=== PATIENT | female | born 1955 | race Caucasian/White ===

== ENCOUNTER 2023-04-22 09:30 | Inpatient (IN) ==
[2023-04-22] MEDS ORDERED: ONDANSETRON 4 MG/2 ML VIAL IV PRN (09:38)
[2023-04-22 10:52] LABS: Basophils # (Auto) 0.01 K/mcL (0.00-0.30); Basophils % (Auto) 0.1 % (0.0-2.0); Eosinophils # (Auto) 0.01 K/mcL (0.00-0.70); Eosinophils % (Auto) 0.1 % (0.0-7.0); Hematocrit 33.9 % (34.1-44.9); Hemoglobin 10.9 g/dL (11.2-15.7); Lymphocytes % (Auto) 9.4 % (15.5-49.0); Mean Cell Volume 92.6 fL (80.0-100.0); Mean Corpuscular HGB Conc 32.2 g/dL (31.0-36.0); Mean Platelet Volume 8.4 fL (8.8-12.5); Monocytes # (Auto) 0.34 K/mcL (0.10-0.90); Platelet Count 257 K/mcL (140-440); RBC 3.66 M/mcL (3.59-5.38); Red Cell Distribution Width 11.9 % (11.5-14.5); WBC 8.5 K/mcL (4.5-11.0)
[2023-04-22 11:26] LABS: ALT/SGPT 12 U/L (<40); AST/SGOT 19 U/L (<32); Albumin 3.1 gm/dL (3.2-5.2); Alkaline Phosphatase 130 U/L (39-117); Bilirubin,Direct < 0.2 mg/dL (0-0.3); Bilirubin,Total 0.3 mg/dL (0.1-1.0); Blood Urea Nitrogen 10 mg/dL (8-23); Calcium 9.1 mg/dL (8.6-10.4); Carbon Dioxide 26 mmol/L (22-30); Chloride 101 mmol/L (96-108); Globulin 3.2 gm/dL (2.2-3.7); Glomerular Filtration Rate 52; Glucose 117 mg/dL (70-105); Lactate Dehydrogenase 156 U/L (135-225); Phosphorous 1.9 mg/dL (2.5-4.5); Triglycerides 160 mg/dL (<150); Uric Acid 7.9 mg/dL (2.5-8.0)
[2023-04-22] MEDS: 0.9 % SODIUM CHLORIDE 1,000 ML IV SCH ×2 (11:48→17:24)
[2023-04-22] MEDS: 0.9 % SODIUM CHLORIDE 10 ML SYRINGE IV SCH ×2 (13:03→21:51)
[2023-04-22] MEDS: PIPERACILLIN SODIUM/TAZOBACTAM 3.375 GM in DEXTROSE 5% IN WATER 50 ML IV SCH ×3 (13:03→23:46)
[2023-04-22] MEDS ORDERED: IOPAMIDOL 100 ML BOTTLE IV ONE (14:44)
[2023-04-22] MEDS: POTASSIUM PHOSPHATE 40 MEQ in DEXTROSE 5% IN WATER 500 ML IV SCH ×2 (15:05→20:12)
[2023-04-22] MEDS: TEMAZEPAM 15 MG CAPSULE PO PRN (21:07)
[2023-04-22] MEDS: ARIPIPRAZOLE 5 MG TABLET PO SCH (21:07)
[2023-04-22] MEDS: SENNOSIDES 1 TABLET PO SCH (21:07)
[2023-04-22] MEDS: DOCUSATE SODIUM 100 MG CAPSULE PO SCH (21:08)
[2023-04-22] MEDS: PRAZOSIN 1 MG CAPSULE PO SCH (21:51)
[2023-04-23] MEDS: HYDROmorphone 0.5 MG/0.5 ML SYRINGE IV PRN ×3 (03:43→20:06)
[2023-04-23] MEDS: 0.9 % SODIUM CHLORIDE 10 ML SYRINGE IV SCH ×2 (05:34→14:13)
[2023-04-23] MEDS: PIPERACILLIN SODIUM/TAZOBACTAM 3.375 GM in DEXTROSE 5% IN WATER 50 ML IV SCH ×4 (06:03→23:19)
[2023-04-23] MEDS: 0.9 % SODIUM CHLORIDE 1,000 ML IV SCH ×3 (06:38→16:55)
[2023-04-23] MEDS: PANTOPRAZOLE 40 MG TABLET PO SCH (07:57)
[2023-04-23] MEDS: DOCUSATE SODIUM 100 MG CAPSULE PO SCH ×2 (09:25→20:08)
[2023-04-23] MEDS: TEMAZEPAM 15 MG CAPSULE PO PRN (20:08)
[2023-04-23] MEDS: ARIPIPRAZOLE 5 MG TABLET PO SCH (20:08)
[2023-04-23] MEDS: SENNOSIDES 1 TABLET PO SCH (20:08)
[2023-04-23] MEDS: PRAZOSIN 1 MG CAPSULE PO SCH (21:00)
[2023-04-24] MEDS: 0.9 % SODIUM CHLORIDE 10 ML SYRINGE IV SCH ×4 (01:37→22:05)
[2023-04-24] MEDS: 0.9 % SODIUM CHLORIDE 1,000 ML IV SCH ×3 (02:09→17:13)
[2023-04-24] MEDS: HYDROmorphone 0.5 MG/0.5 ML SYRINGE IV PRN ×3 (02:14→20:24)
[2023-04-24] MEDS ORDERED: SCOPOLAMINE 1 PATCH PATCH TOPICAL PRN (05:00)
[2023-04-24] MEDS ORDERED: IPRATROPIUM/ALBUTEROL 3 ML AMPUL.NEB NEB PRN ×2 (05:00→14:15)
[2023-04-24] MEDS: PIPERACILLIN SODIUM/TAZOBACTAM 3.375 GM in DEXTROSE 5% IN WATER 50 ML IV SCH ×3 (05:39→17:15)
[2023-04-24] MEDS: PANTOPRAZOLE 40 MG TABLET PO SCH (08:54)
[2023-04-24] MEDS: DOCUSATE SODIUM 100 MG CAPSULE PO SCH ×2 (11:04→20:33)
[2023-04-24] MEDS ORDERED: LIDOCAINE HCL/PF 100 MG/5 ML SYRINGE IV ONE (12:48)
[2023-04-24] MEDS ORDERED: KETAMINE 50 MG/ML Syringe IV ONE (12:48)
[2023-04-24] MEDS ORDERED: ONDANSETRON 4 MG/2 ML VIAL ONE (12:48)
[2023-04-24] MEDS ORDERED: fentaNYL 100 MCG/2 ML VIAL IV ONE (12:48)
[2023-04-24] MEDS ORDERED: ROCURONIUM 10 MG/ML ML IV ONE (12:48)
[2023-04-24] MEDS ORDERED: DEXAMETHASONE 10 MG/ML VIAL ONE (12:48)
[2023-04-24] MEDS ORDERED: SUGAMMADEX SODIUM 200 MG/2 ML VIAL IV ONE (12:48)
[2023-04-24] MEDS ORDERED: KETOROLAC 30 MG/ML VIAL ONE (12:48)
[2023-04-24] MEDS ORDERED: MAGNESIUM SULFATE 2 GM/50 ML BAG IV ONE (12:48)
[2023-04-24] MEDS ORDERED: PROPOFOL 200 MG/20 ML VIAL IV ONE (12:48)
[2023-04-24] MEDS ORDERED: TEMAZEPAM 15 MG CAPSULE PO PRN (13:59)
[2023-04-24] MEDS ORDERED: METHOCARBAMOL 1,000 MG/10 ML VIAL IV PRN (14:15)
[2023-04-24] MEDS ORDERED: ONDANSETRON 4 MG/2 ML VIAL IV PRN (14:15)
[2023-04-24] MEDS ORDERED: LACTATED RINGERS 1,000 ML IV SCH (14:15)
[2023-04-24] MEDS ORDERED: HYDROmorphone 0.5 MG/0.5 ML SYRINGE IV PRN (14:15)
[2023-04-24] MEDS ORDERED: LACTATED RINGERS 250 ML IV PRN (14:15)
[2023-04-24] MEDS ORDERED: MEPERIDINE 25 MG/ML VIAL IV PRN (14:15)
[2023-04-24] MEDS: fentaNYL 100 MCG/2 ML VIAL IV PRN ×4 (14:28→14:51)
[2023-04-24] MEDS: SUCRALFATE 1 GM/10 ML ORAL.SUSP PO SCH (17:14)
[2023-04-24] MEDS: METOCLOPRAMIDE 10 MG/2 ML VIAL IV SCH (17:15)
[2023-04-24] MEDS: SENNOSIDES 1 TABLET PO SCH (20:32)
[2023-04-24] MEDS: ARIPIPRAZOLE 5 MG TABLET PO SCH (20:33)
[2023-04-24] MEDS: PRAZOSIN 1 MG CAPSULE PO SCH (20:34)
[2023-04-24] MEDS: TEMAZEPAM 15 MG CAPSULE PO PRN (20:35)
[2023-04-24] MEDS ORDERED: PRAZOSIN 2 MG CAPSULE PO SCH (21:00)
[2023-04-25] MEDS: PIPERACILLIN SODIUM/TAZOBACTAM 3.375 GM in DEXTROSE 5% IN WATER 50 ML IV SCH ×4 (00:45→16:59)
[2023-04-25] MEDS: SUCRALFATE 1 GM/10 ML ORAL.SUSP PO SCH ×4 (00:45→18:03)
[2023-04-25] MEDS: METOCLOPRAMIDE 10 MG/2 ML VIAL IV SCH ×4 (00:45→18:03)
[2023-04-25] MEDS: HYDROmorphone 0.5 MG/0.5 ML SYRINGE IV PRN ×2 (00:55→05:33)
[2023-04-25] MEDS: 0.9 % SODIUM CHLORIDE 1,000 ML IV SCH ×3 (02:41→16:10)
[2023-04-25] MEDS: 0.9 % SODIUM CHLORIDE 10 ML SYRINGE IV SCH ×2 (05:33→12:03)
[2023-04-25] MEDS: PANTOPRAZOLE 40 MG TABLET PO SCH (08:13)
[2023-04-25] MEDS ORDERED: FLUoxetine HCL 10 MG CAPSULE PO SCH (09:00)
[2023-04-25] MEDS ORDERED: LEVOTHYROXINE 50 MCG TABLET PO SCH (09:00)
[2023-04-25] MEDS ORDERED: PHENTERMINE 15 MG PO SCH (09:00)
[2023-04-25] MEDS: DOCUSATE SODIUM 100 MG CAPSULE PO SCH (10:26)
[2023-04-25 12:52] VITALS: TEMP 96.7; O2SAT 100
== END 2023-04-25 19:55 | disposition home or self-care (01) | DRG 418 ==
LOC: MEDSUR 09:59
PROVIDERS: ADMIT Family Medicine Adult Medicine; ATTEND Family Medicine Adult Medicine

== ENCOUNTER 2024-03-31 19:12 | Inpatient (IN) ==
[2024-03-31] MEDS: HYDROmorphone 0.5 MG/0.5 ML SYRINGE IV PRN (19:54)
[2024-03-31] MEDS: 0.9 % SODIUM CHLORIDE 1,000 ML IV ONE (19:54)
[2024-03-31] MEDS: ONDANSETRON 4 MG/2 ML VIAL IV ONE (19:54)
[2024-03-31] MEDS ORDERED: NALOXONE HCL 0.4 MG/ML VIAL IV PRN (20:06)
[2024-03-31] MEDS ORDERED: ACETAMINOPHEN 325 MG TABLET PO PRN (20:06)
[2024-03-31 20:13] LABS: Basophils # (Auto) 0.01 K/mcL (0.00-0.30); Basophils % (Auto) 0.1 % (0.0-2.0); Eosinophils # (Auto) 0.01 K/mcL (0.00-0.70); Eosinophils % (Auto) 0.1 % (0.0-7.0); Hematocrit 37.7 % (34.1-44.9); Hemoglobin 12.9 g/dL (11.2-15.7); Lymphocytes # (Auto) 1.66 K/mcL (1.50-4.80); Lymphocytes % (Auto) 15.3 % (15.5-49.0); Mean Cell Volume 87.1 fL (80.0-100.0); Mean Corpuscular HGB Conc 34.2 g/dL (31.0-36.0); Mean Platelet Volume 9.1 fL (8.8-12.5); Monocytes # (Auto) 0.69 K/mcL (0.10-0.90); Monocytes % (Auto) 6.3 % (1.0-12.0); Neutrophils % (Auto) 77.9 % (38.0-78.0); Platelet Count 306 K/mcL (140-440); RBC 4.33 M/mcL (3.59-5.38); Red Cell Distribution Width 11.8 % (11.5-14.5); WBC 10.9 K/mcL (4.5-11.0)
[2024-03-31 20:27] LABS: Prothrombin Time 13.1 sec (11.9-14.5)
[2024-03-31 20:31] LABS: ALT/SGPT < 5 U/L (<40); AST/SGOT 17 U/L (<32); Albumin 4.2 gm/dL (3.2-5.2); Albumin/Globulin Ratio 1.4 (1.0-2.3); Alkaline Phosphatase 136 U/L (39-117); Bilirubin,Total 0.6 mg/dL (0.1-1.0); Blood Urea Nitrogen 13 mg/dL (8-23); Calcium 9.8 mg/dL (8.6-10.4); Carbon Dioxide 23 mmol/L (22-30); Chloride 97 mmol/L (96-108); Globulin 2.9 gm/dL (2.2-3.7); Glomerular Filtration Rate 66; Glucose 134 mg/dL (70-105); Potassium 3.1 mmol/L (3.3-5.1); Sodium 135 mmol/L (133-145)
[2024-03-31] MEDS: HYDROmorphone 1 MG/ML SYRINGE IV ONE (20:33)
[2024-03-31] MEDS: POTASSIUM CHLORIDE 20 MEQ TABLET PO ONE (21:02)
[2024-03-31] MEDS: 0.9 % SODIUM CHLORIDE 1,000 ML IV SCH (21:02)
[2024-03-31] MEDS: morphine 2 MG/ML VIAL IV PRN (21:29)
[2024-03-31 21:45] LABS: Appearance,Urine Clear (Clear); Bacteria,Urine Many /hpf (0); Bilirubin,Urine Negative (Negative); Color,Urine Yellow; Culture Indicated,Urine Yes; Glucose,Urine (UA) Negative (Negative); Ketones,Urine Negative (Negative); Leukocyte Esterase,Urine Small /uL (Negative); Nitrate,Urine Negative (Negative); Protein,Urine 30 mg/dL (Negative); Urine Blood Moderate ery/mcL (Negative); Urine RBC 1 /hpf (0-3); Urine Squamous Epithelial Cell 0 /hpf (0-4); Urine WBC 60 /hpf (0-4); Urobilinogen,Urine Normal
[2024-03-31] MEDS: NITROFURANTOIN SR 100 MG CAPSULE PO ONE (22:01)
[2024-04-01 06:00] LABS: Basophils # (Auto) 0 K/mcL (0.00-0.30); Basophils % (Auto) 0 % (0.0-2.0); Eosinophils # (Auto) 0.03 K/mcL (0.00-0.70); Eosinophils % (Auto) 0.5 % (0.0-7.0); Hematocrit 32.1 % (34.1-44.9); Hemoglobin 10.6 g/dL (11.2-15.7); Lymphocytes # (Auto) 1.75 K/mcL (1.50-4.80); Lymphocytes % (Auto) 26.4 % (15.5-49.0); Mean Cell Volume 89.9 fL (80.0-100.0); Mean Platelet Volume 9.1 fL (8.8-12.5); Monocytes # (Auto) 0.51 K/mcL (0.10-0.90); Monocytes % (Auto) 7.7 % (1.0-12.0); Neutrophils % (Auto) 65.2 % (38.0-78.0); Platelet Count 231 K/mcL (140-440); RBC 3.57 M/mcL (3.59-5.38); Red Cell Distribution Width 11.7 % (11.5-14.5); WBC 6.6 K/mcL (4.5-11.0)
[2024-04-01 06:11] LABS: ALT/SGPT < 5 U/L (<40); AST/SGOT 16 U/L (<32); Albumin 3.3 gm/dL (3.2-5.2); Albumin/Globulin Ratio 1.4 (1.0-2.3); Alkaline Phosphatase 114 U/L (39-117); Bilirubin,Direct < 0.2 mg/dL (0-0.3); Bilirubin,Total 0.5 mg/dL (0.1-1.0); Blood Urea Nitrogen 11 mg/dL (8-23); Calcium 8.7 mg/dL (8.6-10.4); Carbon Dioxide 25 mmol/L (22-30); Chloride 104 mmol/L (96-108); Globulin 2.3 gm/dL (2.2-3.7); Glomerular Filtration Rate 76; Glucose 96 mg/dL (70-105); Lactate Dehydrogenase 146 U/L (135-225); Phosphorous 2.8 mg/dL (2.5-4.5); Potassium 3.6 mmol/L (3.3-5.1); Sodium 138 mmol/L (133-145); Triglycerides 107 mg/dL (<150)
[2024-04-01] MEDS ORDERED: FLEETS ADULT 1 DOSE ENEMA PR PRN (07:07)
[2024-04-01] MEDS ORDERED: POLYETHYLENE GLYCOL 3350 17 GM PACKET PO PRN (07:07)
[2024-04-01] MEDS ORDERED: BENZOCAINE/MENTHOL 1 LOZENGE PO PRN (07:07)
[2024-04-01] MEDS ORDERED: MAGNESIUM HYDROXIDE 30 ML ORAL.SUSP PO PRN (07:07)
[2024-04-01] MEDS ORDERED: ONDANSETRON 4 MG/2 ML VIAL IV PRN (07:07)
[2024-04-01] MEDS ORDERED: BISACODYL 10 MG SUPP.RECT PR PRN (07:07)
[2024-04-01] MEDS ORDERED: DEXTROSE 5%-1/2NS 1,000 ML IV SCH (08:00)
[2024-04-01] MEDS: NITROFURANTOIN SR 100 MG CAPSULE PO SCH (08:31)
[2024-04-01] MEDS: DEXTROSE 5%-1/2NS 1,000 ML IV SCH (08:32)
[2024-04-01] MEDS: LOSARTAN 50 MG TABLET PO SCH (08:32)
[2024-04-01] MEDS: DOCUSATE SODIUM 100 MG CAPSULE PO SCH (09:05)
[2024-04-01] MEDS: 0.9 % SODIUM CHLORIDE 10 ML SYRINGE IV SCH ×2 (13:51→20:40)
[2024-04-01] MEDS: ceFAZolin 2 GM in DEXTROSE 5% IN WATER 50 ML IV SCH (15:44)
[2024-04-01] MEDS ORDERED: PROPOFOL 200 MG/20 ML VIAL IV ONE (15:49)
[2024-04-01] MEDS ORDERED: BUPIVACAINE PF 0.5% 10 ML VIAL ONE (15:50)
[2024-04-01] MEDS ORDERED: TRANEXAMIC ACID 1,000 MG/10 ML VIAL ONE (15:50)
[2024-04-01] MEDS ORDERED: MIDAZOLAM 2 MG/2 ML VIAL ONE (16:36)
[2024-04-01] MEDS ORDERED: MAGNESIUM SULFATE 2 GM/50 ML BAG IV ONE (17:06)
[2024-04-01] MEDS ORDERED: ePHEDrine 50 MG/5 ML SYRINGE (ANEST) IV ONE (17:17)
[2024-04-01] MEDS ORDERED: PHENYLephrine 1 MG/10 ML SYRINGE (ANEST) ONE (17:56)
[2024-04-01] MEDS ORDERED: DEXAMETHASONE 10 MG/ML VIAL ONE (18:04)
[2024-04-01] MEDS ORDERED: GLYCOPYRROLATE 0.2 MG/ML VIAL IV ONE (18:04)
[2024-04-01] MEDS ORDERED: ONDANSETRON 4 MG/2 ML VIAL ONE (18:04)
[2024-04-01] MEDS ORDERED: fentaNYL 100 MCG/2 ML VIAL ONE (18:14)
[2024-04-01] MEDS: VANCOMYCIN 1 GM VIAL TOPICAL SCH (18:27)
[2024-04-01] MEDS ORDERED: METHOCARBAMOL 500 MG TABLET PO PRN (18:43)
[2024-04-01] MEDS: TRANEXAMIC ACID 1,000 MG/10 ML VIAL IV ONE (19:31)
[2024-04-01] MEDS ORDERED: IPRATROPIUM/ALBUTEROL 3 ML AMPUL.NEB NEB PRN (19:33)
[2024-04-01] MEDS: ONDANSETRON 4 MG/2 ML VIAL IV PRN (19:37)
[2024-04-01] MEDS: LACTATED RINGERS 1,000 ML IV SCH ×2 (20:04→20:09)
[2024-04-01] MEDS: ONDANSETRON 4 MG/2 ML VIAL IV ONE (20:04)
[2024-04-01] MEDS: TRANEXAMIC ACID 1,000 MG/10 ML VIAL ONE (20:34)
[2024-04-01] MEDS: SENNOSIDES 1 TABLET PO SCH (21:41)
[2024-04-01] MEDS: ASPIRIN 81 MG TAB.CHEW CHEWED SCH (21:42)
[2024-04-01] MEDS: KETOROLAC 15 MG/ML VIAL IV PRN (21:42)
[2024-04-01] MEDS: ACETAMINOPHEN 500 MG TABLET PO SCH (21:43)
[2024-04-01] MEDS: ceFAZolin 1 GM VIAL IV SCH (23:43)
[2024-04-02] MEDS: oxyCODONE IR 5 MG TABLET PO PRN (04:26)
[2024-04-02 07:33] VITALS: TEMP 96.4; O2SAT 99
== END 2024-04-02 10:51 | disposition home or self-care (01) | DRG 522 ==
LOC: MEDSUR 19:12 → ED 19:12 → MEDSUR 21:20
PROVIDERS: ADMIT Orthopaedic Surgery; ATTEND Orthopaedic Surgery